=== PATIENT | female | born 1985 | race American Indian/Alaskan Native ===

== ENCOUNTER 2020-07-18 07:30 | Inpatient (IN) | payer OTHER, SELFPAY ==
--- NOTE | 2020-07-18 07:51 | Emergency Department Report ---
ED Abdominal Pain HPI - General Chief Complaint: Abdominal Pain Stated Complaint: SEVERE ABD PAIN Time Seen by Provider: 07/18/20 07:49 Source: patient Mode of arrival: Ambulatory Limitations: No Limitations - History of Present Illness Initial Comments: This pleasant 34-year-old female presents the emergency department chief complaint of right upper quadrant abdominal pain with associated nausea and vomiting over the past 3 days. She denies any bloody or bilious vomiting. She reports anytime she eats she vomits. She denies any radiating pain. Abdomen is located in the right upper quadrant denies any alleviating factors. She denies any known past medical history, current medication use, known allergies to medications or previous surgeries. She denies any associated fever, chills, night sweats, headache, dizziness, blurry vision, chest pain, shortness of breath, weakness or any other associated symptoms. - Related Data Allergies Allergy/AdvReac Type Severity Reaction Status Date / Time No Known Allergies Allergy Unverified 07/18/20 07:36 ED Review of Systems ROS: Stated complaint: SEVERE ABD PAIN Other details as noted in HPI Comment: All other systems reviewed and negative Constitutional: denies: chills, fever Eyes: denies: eye pain, eye discharge, vision change ENT: denies: ear pain, throat pain Respiratory: denies: cough, shortness of breath, wheezing Cardiovascular: denies: chest pain, palpitations Endocrine: no symptoms reported Gastrointestinal: as per HPI, abdominal pain, nausea, vomiting. denies: diarrhea Genitourinary: denies: urgency, dysuria, discharge Musculoskeletal: denies: back pain, joint swelling, arthralgia Skin: denies: rash, lesions Neurological: denies: headache, weakness, paresthesias Psychiatric: denies: anxiety, depression Hematological/Lymphatic: denies: easy bleeding, easy bruising ED Past Medical Hx - Past Medical History Previous Medical History?: No - Surgical History Past Surgical History?: No - Social History Smoking Status: Never Smoker ED Physical Exam - General Limitations: No Limitations General appearance: alert, in no apparent distress - Head Head exam: Present: atraumatic, normocephalic - Eye Eye exam: Present: normal appearance, PERRL, EOMI Pupils: Present: normal accommodation - ENT ENT exam: Present: normal exam, mucous membranes moist - Neck Neck exam: Present: normal inspection, full ROM. Absent: tenderness, meningismus - Respiratory Respiratory exam: Present: normal lung sounds bilaterally. Absent: respiratory distress, wheezes, rales, rhonchi, stridor - Cardiovascular Cardiovascular Exam: Present: regular rate, normal rhythm, normal heart sounds. Absent: systolic murmur, diastolic murmur, rubs, gallop - GI/Abdominal GI/Abdominal exam: Present: soft, tenderness (TTP to RUQ, negative jaramillo sign ,no rebound or guarding, negative mcburneys point tenderness, no CVA tenderness bilaterally ), normal bowel sounds. Absent: distended - Extremities Exam Extremities exam: Present: normal inspection, full ROM, normal capillary refill. Absent: tenderness, calf tenderness - Back Exam Back exam: Present: normal inspection, full ROM. Absent: tenderness, CVA tenderness (R), CVA tenderness (L) - Neurological Exam Neurological exam: Present: alert, oriented X3, normal gait - Psychiatric Psychiatric exam: Present: normal affect, normal mood - Skin Skin exam: Present: warm, dry, intact, normal color. Absent: rash ED Course Vital Signs 07/18/20 07:36 Temperature 98.6 F Pulse Rate 83 Respiratory 16 Rate Blood Pressure 154/109 O2 Sat by Pulse 100 Oximetry - Reevaluation(s) Reevaluation #1: 07/18/20 09:39 Patient reports feeling better after IV fluids and antiemetics. Her labs re turned with and a slight increase in her LFTs and her lipase is elevated consistent with acute pancreatitis. Ultrasound of the right upper quadrant shows gallstones and a possible dilated common bile duct. GI was paged for consultation. I discussed these results with the patient that she likely has choledocholithiasis and may require MR CP or ERCP. Patient stated that she could not be admitted to the hospital today due to her 1-year-old not having any childcare. She stated that possibly her sister could watch the child and I pleaded with her to call her sister to try and get her to watch the child so we could address this issue. She understood the seriousness of pancreatitis and the risk of leaving without treatment that could include or permanent disability. 07/18/20 09:39 12 09:57 patient was able to find child welfare worker and will be admitted. Discussed with attending physician who agreed with plan. - Consultations Consultation #1: 07/18/[address] Piper (GI). He requested we order MRCP and admit to [facility]. He will come see patient. Consultation #2: 07/18/20 09:56 Spoke with [facility] physician at [phone] I place order for MRCP and admit to Dr. Salmeron ([facility]) ED Medical Decision Making - Lab Data Result diagrams: 07/18/20 07:58 07/18/20 07:58 Lab Results 07/18/20 07/18/20 07/18/20 Range/Units 07:58 07:58 Unknown WBC 8.4 (4.5-11.0) K/mm3 RBC 4.94 (3.65-5.03) M/mm3 Hgb 13.1 (10.1-14.3) gm/dl Hct 40.3 (30.3-42.9) % MCV 82 (79-97) fl MCH 27 L (28-32) pg MCHC 33 (30-34) % RDW 12.9 L (13.2-15.2) % Plt Count 265 (140-440) K/mm3 Lymph % (Auto) 11.6 L (13.4-35.0) % [place] % (Auto) 7.5 H (0.0-7.3) % Eos % (Auto) 0.1 (0.0-4.3) % Baso % (Auto) 0.1 (0.0-1.8) % Lymph # (Auto) 1.0 L (1.2-5.4) K/mm3 [place] # (Auto) 0.6 (0.0-0.8) K/mm3 Eos # (Auto) 0.0 (0.0-0.4) K/mm3 Baso # (Auto) 0.0 (0.0-0.1) K/mm3 Seg Neutrophils % 80.7 H (40.0-70.0) % Seg Neutrophils # 6.8 (1.8-7.7) K/mm3 Sodium 139 (137-145) mmol/L Potassium 3.6 (3.6-5.0) mmol/L Chloride 101.8 (98-107) mmol/L Carbon Dioxide 30 (22-30) mmol/L Anion Gap 11 mmol/L BUN 9 (7-17) mg/dL Creatinine 0.8 (0.6-1.2) mg/dL Estimated GFR > 60 ml/min BUN/Creatinine Ratio 11 % Glucose 111 H (65-100) mg/dL Calcium 9.5 (8.4-10.2) mg/dL Total Bilirubin 0.70 (0.1-1.2) mg/dL AST 79 H (5-40) units/L ALT 117 H (7-56) units/L Alkaline Phosphatase 79 (35-129) units/L Total Protein 8.8 H (6.3-8.2) g/dL Albumin 4.6 (3.9-5) g/dL Albumin/Globulin Ratio 1.1 % Lipase 1286 H (13-60) units/L Urine Color Sana (Yellow) Urine Turbidity Slightly-cloudy (Clear) Urine pH 5.0 (5.0-7.0) Ur Specific [place] 1.028 (1.003-1.030) Urine Protein 100 mg/dl (Negative) mg/dL Urine Glucose (UA) Neg (Negative) mg/dL Urine Ketones Neg (Negative) mg/dL Urine Blood Neg (Negative) Urine Nitrite Neg (Negative) Urine Bilirubin Neg (Negative) Urine Urobilinogen 2.0 (<2.0) mg/dL Ur Leukocyte Esterase Lg (Negative) Urine WBC (Auto) 41.0 H (0.0-6.0) /HPF Urine RBC (Auto) 5.0 (0.0-6.0) /HPF U Epithel Cells (Auto) 15.0 H (0-13.0) /HPF Urine Bacteria (Auto) 1+ (Negative) /HPF Urine Mucus 3+ /HPF Urine HCG, Qual Negative (Negative) - Radiology Data Radiology results: report reviewed, image reviewed [facility] [address] [place] [address] Ultrasound Report Signed Patient: ONUR LOUIS MR#: [id number] : 1985 Acct:[id number] Age/Sex: 34 / F ADM Date: 07/18/20 Loc: ED Attending Dr: Ordering Physician: JIMENEZ GUERRERO Date of Service: 07/18/20 Procedure(s): US abdomen limited Accession Number(s): [id number] cc: JIMENEZ GUERRERO ULTRASOUND ABDOMEN, LIMITED (RIGHT UPPER QUADRANT) INDICATION: RUQ pain, N/V. COMPARISON: None available. FINDINGS: Pancreas: Visualized portion shows no significant abnormality. Liver: Normal. Gallbladder: There is cholelithiasis. The gallbladder wall is slightly thickened measuring 4 mm. This is not specific in the setting gallstones. Bile ducts: Normal. Common Bile Duct measures 7 mm. Free fluid: None. Additional Findings: None. IMPRESSION: 1. There is cholelithiasis. There is slight dilatation of the common bile duct. 2. There is slight thickening of the gallbladder wall. This is nonspecific in the setting of gallstones. If cholecystitis is a clinical concern, nuclear medicine HIDA scan can be obtained to further evaluate. Signer Name: Benjamin Sheldon MD Signed: 07/18/2020 8:24 AM Workstation Name: [id number] Transcribed By: OSMIN Dictated By: Benjamin Sheldon MD Electronically Authenticated By: Benjamin Sheldon MD Signed Date/Time: 07/18/20 0824 - Medical Decision Making Patient is hemodynamically stable and in no acute distress. Vital signs are stable other than she was mildly initially hypertensive. Her white count was normal, no Jaramillo sign and no convincing evidence of acute cholecystitis on ultrasound making acute cholecystitis less likely. Her ultrasound was consistent with a common bile duct dilation. Her lipase was elevated and her LFTs were elevated concerning for choledocholithiasis. I spoke with GI who recommended an MRCP which was ordered. I spoke with internal medicine physician who agreed to admit the patient. Patient was able to find childcare and will stay for admission and GI evaluation. She was agreeable to plan and all of her questions were answered. - Differential Diagnosis choledocolithiasis, cholecystitis, pancreatitis, PUD Critical care attestation.: If time is entered above; I have spent that time in minutes in the direct care of this critically ill patient, excluding procedure time. ED Disposition Clinical Impression: Choledocholithiasis Acute pancreatitis Qualifiers: Pancreatitis type: biliary Acute pancreatitis complication: unspecified Qualified Code(s): K85.10 - Biliary acute pancreatitis without necrosis or infection Disposition: OP ADMIT IP TO THIS HOSP Is pt being admited?: Yes Does the pt Need Aspirin: No Condition: Stable Instructions: Abdominal Pain (ED) Time of Disposition: 10:00
[2020-07-18] MEDS ORDERED: ONDANSETRON 4 MG/2 ML INJ IV ONE (07:52)
[2020-07-18] MEDS ORDERED: SODIUM CHLORIDE 0.9% 1000 ML 1,000 ML IV ONE (07:52)
[2020-07-18 08:03] LABS: Bacteria,Urine 1+ /HPF (Negative); Bilirubin,Urine NEG (Negative); Blood,Urine NEG (Negative); Color,Urine Amber (Yellow); Mucus,Urine 3+ /HPF
[2020-07-18 08:04] LABS: HCG Qualitative,Urine Negative (Negative)
--- NOTE | 2020-07-18 08:29 | Ultrasound Report ---
ULTRASOUND ABDOMEN, LIMITED (RIGHT UPPER QUADRANT) INDICATION: RUQ pain, N/V. COMPARISON: None available. FINDINGS: Pancreas: Visualized portion shows no significant abnormality. Liver: Normal. Gallbladder: There is cholelithiasis. The gallbladder wall is slightly thickened measuring 4 mm. This is not specific in the setting gallstones. Bile ducts: Normal. Common Bile Duct measures 7 mm. Free fluid: None. Additional Findings: None. IMPRESSION: 1. There is cholelithiasis. There is slight dilatation of the common bile duct. 2. There is slight thickening of the gallbladder wall. This is nonspecific in the setting of gallston es. If cholecystitis is a clinical concern, nuclear medicine HIDA scan can be obtained to further neal luate. Signer Name: Benjamin Sheldon MD Signed: 07/18/2020 8:24 AM Workstation Name: [id number]
[2020-07-18 08:30] LABS: Basophils % (Auto) 0.1 % (0.0-1.8); Eosinophils % (Auto) 0.1 % (0.0-4.3); Hematocrit 40.3 % (30.3-42.9); Hemoglobin 13.1 gm/dl (10.1-14.3); Lymphocytes % (Auto) 11.6 % (13.4-35.0); Mean Corpuscular HGB Conc 33 % (30-34); Mean Corpuscular Volume 82 fl (79-97); Monocytes # (Auto) 0.6 K/mm3 (0.0-0.8); Monocytes % (Auto) 7.5 % (0.0-7.3); Platelet Count 265 K/mm3 (140-440); Red Blood Count 4.94 M/mm3 (3.65-5.03); Red Cell Distribution Width 12.9 % (13.2-15.2)
[2020-07-18 09:16] LABS: Alanine Aminotransferase 117 units/L (7-56); Albumin 4.6 g/dL (3.9-5); BUN/Creatinine Ratio 11; Blood Urea Nitrogen 9 mg/dL (7-17); Calcium 9.5 mg/dL (8.4-10.2); Hemolysis Index 9
--- NOTE | 2020-07-18 11:06 | History and Physical Report ---
History of Present Illness Date of examination: 07/18/20 Chief complaint: abd pain History of present illness: This is a 34-year-old female with preeclampsia during who presents to the emergency department on 07/18 with complaints of bilateral lower abdomen and right upper quadrant pain associated with nausea and vomiting for 3 days. She rates her pain at 7-8/10 and is described as sharp and intermittent without radiation. Patient states the pain gets worse with eating and slightly alleviated with vomiting. She states the pain has been ongoing intermittently for 6 months however has worsened over the past 3 days. She denies any hematochezia, melena, hemoptysis or coffee-ground emesis. She denies fevers, chills, hemoptysis, fatigue, recent weight loss, diarrhea, recent sick contacts or known exposure to COVID-19. Work-up in the emergency department included an abdominal ultrasound which revealed cholelithiasis with slight dilation of the common bile duct, slight thickening of the gallbladder wall, lab work which revealed transaminitis (AST 79, ALT 117) and elevated lipase at 1236. Her urine analysis is positive for leukocyte esterase with pyuria. GI was consulted in the emergency department who ordered a MRCP. She was admitted to the hospital service for further evaluation and treatment of her urinary tract infection. Advance care planning conducted in the emergency department, prior visits reviewed and no home medications to reconcile. Past History Past Medical History: No medical history, other (preeclampsia while ) Past Surgical History: No surgical history Social history: , lives with family, full code. denies: smoking, alcohol abuse, prescription drug abuse, IV drug use Family history: no significant family history Medications and Allergies Allergies Allergy/AdvReac Type Severity Reaction Status Date / Time No Known Allergies Allergy Unverified 07/18/20 07:36 Active Meds: Active Medications Acetaminophen (Tylenol) 650 mg PO Q4H PRN PRN Reason: Pain MILD(1-3)/Fever >100.5/DUBON Morphine Sulfate (Morphine) 2 mg IV Q4H PRN PRN Reason: Pain, Moderate (4-6) Ondansetron HCl (Zofran) 4 mg IV Q8H PRN PRN Reason: Nausea And Vomiting Sodium Chloride (Sodium Chloride Flush Syringe 10 Ml) 10 ml IV BID DONELL Sodium Chloride (Sodium Chloride Flush Syringe 10 Ml) 10 ml IV PRN PRN PRN Reason: LINE FLUSH Review of Systems Constitutional: weakness, no weight loss, no weight gain, no fever, no chills, no sweats, no night sweats, no anorexia, no fatigue, no malaise, no lethargy, no chronic headaches, no poor appetite Ears, nose, mouth and throat: no ear pain, no ear discharge, no tinnitis, no decreased hearing, no nose pain, no nasal congestion, no nasal discharge, no sinus pressure, no sinus pain, no epistaxis, no bleeding gums, no dental pain, no dysphagia, no sore throat, no voice changes, no post-nasal drip, no headache Cardiovascular: no chest pain, no orthopnea, no palpitations, no rapid/irregular heart beat, no edema, no syncope, no lightheadedness, no shortness of breath, no dyspnea on exertion, no paroxysmal nocturnal dyspnea, no claudication, no phlebitis, no high blood pressure, no leg edema, no decreased exercise tolerance Respiratory: no cough, no cough with sputum, no excessive sputum, no hemoptysis, no shortness of breath, no dyspnea on exertion, no pleurisy, no pain on inspiration Gastrointestinal: loss of appetite, no abdominal pain, no nausea, no vomiting, no diarrhea, no constipation, no change in bowel habits, no hematemesis, no coffee ground emesis, no BRBPR, no melena, no hematochezia Genitourinary Female: no dyspareunia, no dysmenorrhea, no pelvic pain, no flank pain, no menorrhagia, no dysuria, no urinary frequency, no urgency, no stress incontinence Musculoskeletal: no neck pain, no shooting arm pain, no arm numbness/tingling, no low back pain, no shooting leg pain, no leg numbness/tingling Integumentary: no rash, no pruritis, no redness, no sores, no wounds, no jaundice, no boils Neurological: no transient paralysis, no paralysis, no weakness, no parathesias, no numbness, no tingling, no seizures, no syncope, no tremors, no ataxia Psychiatric: no anxiety, no memory loss, no change in sleep habits, no sleep disturbances, no insomnia, no hypersomnia, no change in appetite, no suicidal ideation, no depression, no confusion Endocrine: no cold intolerance, no heat intolerance, no polyphagia, no excessive thirst, no polydipsia, no polyuria, no nocturia, no weight change, no palpatat ions Hematologic/Lymphatic: no easy bruising, no easy bleeding Allergic/Immunologic: no urticaria, no allergic rhinitis, no wheezing Exam - Constitutional Vitals: Temp Pulse Resp BP Pulse Ox 98.6 F 83 16 154/109 100 07/18/20 07:36 07/18/20 07:36 07/18/20 07:36 07/18/20 07:36 07/18/20 07:36 General appearance: Present: no acute distress - EENT Eyes: Present: PERRL, EOM intact ENT: hearing intact, clear oral mucosa, dentition normal - Neck Neck: Present: supple - Respiratory Respiratory effort: normal Respiratory: bilateral: CTA - Cardiovascular Rhythm: regular Heart Sounds: Present: S1 & S2. Absent: systolic murmur, diastolic murmur - Extremities Extremities: no ischemia, pulses intact, pulses symmetrical, No edema, normal temperature, normal color, Full ROM Peripheral Pulses: within normal limits - Abdominal General gastrointestinal: Present: soft, non-tender, non-distended, normal bowel sounds - Integumentary Integumentary: Present: clear, warm, dry - Musculoskeletal Musculoskeletal: strength equal bilaterally - Psychiatric Psychiatric: appropriate mood/affect, memory intact, cooperative - Neurologic Neurologic: CNII-XII intact, no focal deficits, moves all extremities - Allied Health Allied health notes reviewed: nursing Results - Labs CBC & Chem 7: 07/18/20 07:58 07/18/20 07:58 Labs: Laboratory Last Values WBC 8.4 K/mm3 (4.5-11.0) 07/18/20 07:58 RBC 4.94 M/mm3 (3.65-5.03) 07/18/20 07:58 Hgb 13.1 gm/dl (10.1-14.3) 07/18/20 07:58 Hct 40.3 % (30.3-42.9) 07/18/20 07:58 MCV 82 fl (79-97) 07/18/20 07:58 MCH 27 pg (28-32) L 07/18/20 07:58 MCHC 33 % (30-34) 07/18/20 07:58 RDW 12.9 % (13.2-15.2) L 07/18/20 07:58 Plt Count 265 K/mm3 (140-440) 07/18/20 07:58 Lymph % (Auto) 11.6 % (13.4-35.0) L 07/18/20 07:58 [place] % (Auto) 7.5 % (0.0-7.3) H 07/18/20 07:58 Eos % (Auto) 0.1 % (0.0-4.3) 07/18/20 07:58 Baso % (Auto) 0.1 % (0.0-1.8) 07/18/20 07:58 Lymph # (Auto) 1.0 K/mm3 (1.2-5.4) L 07/18/20 07:58 [place] # (Auto) 0.6 K/mm3 (0.0-0.8) 07/18/20 07:58 Eos # (Auto) 0.0 K/mm3 (0.0-0.4) 07/18/20 07:58 Baso # (Auto) 0.0 K/mm3 (0.0-0.1) 07/18/20 07:58 Seg Neutrophils % 80.7 % (40.0-70.0) H 07/18/20 07:58 Seg Neutrophils # 6.8 K/mm3 (1.8-7.7) 07/18/20 07:58 Sodium 139 mmol/L (137-145) 07/18/20 07:58 Potassium 3.6 mmol/L (3.6-5.0) 07/18/20 07:58 Chloride 101.8 mmol/L (98-107) 07/18/20 07:58 Carbon Dioxide 30 mmol/L (22-30) 07/18/20 07:58 Anion Gap 11 mmol/L 07/18/20 07:58 BUN 9 mg/dL (7-17) 07/18/20 07:58 Creatinine 0.8 mg/dL (0.6-1.2) 07/18/20 07:58 Estimated GFR > 60 ml/min 07/18/20 07:58 BUN/Creatinine Ratio 11 % 07/18/20 07:58 Glucose 111 mg/dL (65-100) H 07/18/20 07:58 Calcium 9.5 mg/dL (8.4-10.2) 07/18/20 07:58 Total Bilirubin 0.70 mg/dL (0.1-1.2) 07/18/20 07:58 AST 79 units/L (5-40) H 07/18/20 07:58 ALT 117 units/L (7-56) H 07/18/20 07:58 Alkaline Phosphatase 79 units/L (35-129) 07/18/20 07:58 Total Protein 8.8 g/dL (6.3-8.2) H 07/18/20 07:58 Albumin 4.6 g/dL (3.9-5) 07/18/20 07:58 Albumin/Globulin Ratio 1.1 % 07/18/20 07:58 Lipase 1286 units/L (13-60) H 07/18/20 07:58 Urine Color Sana (Yellow) 07/18/20 Unknown Urine Turbidity Slightly-cloudy (Clear) 07/18/20 Unknown Urine pH 5.0 (5.0-7.0) 07/18/20 Unknown Ur Specific [place] 1.028 (1.003-1.030) 07/18/20 Unknown Urine Protein 100 mg/dl mg/dL (Negative) 07/18/20 Unknown Urine Glucose (UA) Neg mg/dL (Negative) 07/18/20 Unknown Urine Ketones Neg mg/dL (Negative) 07/18/20 Unknown Urine Blood Neg (Negative) 07/18/20 Unknown Urine Nitrite Neg (Negative) 07/18/20 Unknown Urine Bilirubin Neg (Negative) 07/18/20 Unknown Urine Urobilinogen 2.0 mg/dL (<2.0) 07/18/20 Unknown Ur Leukocyte Esterase Lg (Negative) 07/18/20 Unknown Urine WBC (Auto) 41.0 /HPF (0.0-6.0) H 07/18/20 Unknown Urine RBC (Auto) 5.0 /HPF (0.0-6.0) 07/18/20 Unknown U Epithel Cells (Auto) 15.0 /HPF (0-13.0) H 07/18/20 Unknown Urine Bacteria (Auto) 1+ /HPF (Negative) 07/18/20 Unknown Urine Mucus 3+ /HPF 07/18/20 Unknown Urine HCG, Qual Negative (Negative) 07/18/20 Unknown - Diagnostic Impressions Diagnostic Impressions: 07/18 abdominal ultrasound shows cholelithiasis, slightly dilated common bile duct, slightly thickened gallbladder wall. 07/18 MRCP shows cholelithiasis with mild gallbladder wall thickening and Choledocholithiasis with a couple tiny stones measuring up to 3 mm in the extrahepatic biliary ductal system. Assessment and Plan - Patient Problems (1) Choledocholithiasis Current Visit: Yes Status: Acute Plan to address problem: 07/18 abdominal ultrasound shows cholelithiasis, slightly dilated common bile duct, slightly thickened gallbladder wall. 07/18 MRCP shows cholelithiasis with mild gallbladder wall thickening and Choledocholithiasis with a couple tiny stones measuring up to 3 mm in the extrahepatic biliary ductal system. GI consulted in the emergency department Supportive care (2) Acute pancreatitis Current Visit: Yes Status: Acute Qualifiers: Pancreatitis type: biliary Acute pancreatitis complication: unspecified Qualified Code(s): K85.10 - Biliary acute pancreatitis without necrosis or infection Plan to address problem: MIVF 07/18 lipase 1286, transaminitis (AST 79, ALT 117) Trend lipase, amalyse Supportive care As needed analgesics (3) Urinary tract infection Current Visit: Yes Status: Acute Plan to address problem: 07/18 urine analysis is positive for leukocyte esterase with pyuria. 07/18 urine culture pending IV antibiotics Supportive care (4) DVT prophylaxis Current Visit: Yes Status: Acute Plan to address problem: SCDs to bilateral extremities while in bed Patient is ambulatory We will hold chemical anticoagulation prophylaxis prophylaxis pending GI input (5) Full code status Current Visit: Yes Status: Acute
[2020-07-18] MEDS ORDERED: MORPHINE 2 MG/1 ML INJ IV PRN (11:30)
[2020-07-18] MEDS ORDERED: ACETAMINOPHEN 325 MG TAB PO PRN (11:30)
[2020-07-18] MEDS ORDERED: ONDANSETRON 4 MG/2 ML INJ IV PRN (11:30)
--- NOTE | 2020-07-18 13:14 | Magnetic Resonance Report ---
MRI abdomen without contrast--MRCP INDICATION: choledocolithiasis. COMPARISON: Right upper quadrant ultrasound from today FINDINGS: Lung bases are clear. No acute osseous abnormality identified. ABDOMEN: There is cholelithiasis with several tiny gallstones and also mild gallbladder wall edema. T here is also choledocholithiasis with at least a couple tiny stones measuring up to 3 mm within the e xtrahepatic biliary system (for example see image #25 of series #4). No significant intrahepatic or e xtrahepatic biliary ductal dilatation. The liver, pancreas, adrenals, kidneys, and visualized GI tract appear unremarkable. IMPRESSION: 1. Cholelithiasis with mild gallbladder wall thickening as may be seen with cholecystitis--correlate with exam findings. 2. Choledocholithiasis with a couple tiny stones measuring up to 3 mm in the extrahepatic biliary maico eloisa system. Signer Name: Bear Ty MD Signed: 07/18/2020 1:10 PM Workstation Name: [id number]
[2020-07-18] MEDS ORDERED: LACTATED RINGERS 1,000 ML IV SCH (14:30)
[2020-07-18] MEDS ORDERED: cefTRIAXone/NS 1 GM/50 ML 1 GM/50 ML BAG IV ONE (14:51)
[2020-07-18] MEDS: cefTRIAXone/NS 1 GM/50 ML 1 GM/50 ML BAG IV SCH ×3 (14:54→23:43)
--- NOTE | 2020-07-18 14:54 | Event Note ---
Date: 07/18/20 Full GI consult dictated - gallstones pancreatitis w/ choledocholithiasis - conservative pancreatitis management - ERCP in am
[2020-07-18] MEDS ORDERED: SODIUM CHLORIDE 0.9% 100 ML IVPB IV SCH (15:00)
[2020-07-18] MEDS ORDERED: SODIUM CHLORIDE 0.9% 1000 ML 1,000 ML ONE (19:06)
--- NOTE | 2020-07-18 21:28 | Consultation ---
REFERRING PHYSICIAN: Shawna Layne MD. INDICATION: 1. Abdominal pain. 2. Nausea. HISTORY OF PRESENT ILLNESS: The patient is a 34-year-old female with recent preeclampsia while , complains of upper abdominal pain. The patient reports 3 days of upper abdominal pain with nausea with eating. She reports no history of reflux. The patient reports she had this pain intermittently over recent months, but usually resolves on its own. She reports no lower GI symptoms including diarrhea, constipation or rectal bleeding. The patient subsequently was brought to the Emergency Room with concerns for gallbladder disease and choledocholithiasis raising, she was admitted and GI consulted. The patient also noted to have increased liver function tests. No other specific complaints. PAST MEDICAL HISTORY: Preeclampsia. MEDICATIONS: Reviewed and updated in chart. ALLERGIES: No known drug allergies. SOCIAL HISTORY: Denies alcohol, tobacco or drug abuse. FAMILY HISTORY: Negative for colon cancer, IBD, or liver disease. REVIEW OF SYSTEMS: GENERAL: Reports some weakness. HEENT: No visual complaints or tinnitus. PULMONARY: No shortness of breath. No cough. No chest pain. GASTROINTESTINAL: Reports abdominal pain and nausea. All points of 13-point review of systems otherwise negative. PHYSICAL EXAMINATION: VITAL SIGNS: Temperature of 98.6, pulse 83, respirations 20, blood pressure 154/90. GENERAL: Fairly nourished female, in no acute distress. HEENT: Pupils equal, round and reactive. PULMONARY: Clear to auscultation bilaterally. CARDIOVASCULAR: Regular rhythm. Normal S1, S2. ABDOMEN: Positive bowel sounds, soft. SKIN: No obvious rashes. LABORATORY DATA: Pertinent for white count of 8.4, hemoglobin and hematocrit of 13.1 and 40.3, platelet count of 265. Chem-7 within normal limits. AST and ALT of 70 and 117, total bilirubin of 0.7, with an alkaline phosphatase of 79. Lipase of 1286. Abdominal ultrasound on 07/18/2020 showed cholelithiasis with slight thickening of the gallbladder wall, a slight dilation of the common bile duct. MRCP showed signs of choledocholithiasis. ASSESSMENT AND PLAN: A 34-year-old black female presents with 2-3 days of abdominal pain with noted increased liver function test and lipase with ultrasound showing stones and MRCP showing choledocholithiasis. The patient most likely has gallstone pancreatitis with choledocholithiasis. PLAN: 1. We will review ultrasound and MRCP. 2. N.p.o. for now. 3. Antiemetics and pain medications per primary team. 4. We will plan for ERCP in a.m. 5. Await for further surgery input as to the laparoscopic cholecystectomy. JOB# [id number] [facility]
[2020-07-19 06:53] LABS: Basophils % (Auto) 0.2 % (0.0-1.8); Eosinophils % (Auto) 0.7 % (0.0-4.3); Hematocrit 36.8 % (30.3-42.9); Lymphocytes # (Auto) 1.8 K/mm3 (1.2-5.4); Mean Corpuscular HGB Conc 33 % (30-34); Mean Corpuscular Volume 82 fl (79-97); Monocytes # (Auto) 0.5 K/mm3 (0.0-0.8); Platelet Count 238 K/mm3 (140-440); Red Blood Count 4.47 M/mm3 (3.65-5.03); Red Cell Distribution Width 12.9 % (13.2-15.2)
[2020-07-19 07:13] LABS: Alanine Aminotransferase 77 units/L (7-56); Albumin 3.9 g/dL (3.9-5); BUN/Creatinine Ratio 10; Blood Urea Nitrogen 9 mg/dL (7-17); Calcium 8.7 mg/dL (8.4-10.2); Hemolysis Index 0
[2020-07-19] MEDS ORDERED: SODIUM CHLORIDE 0.9% 1000 ML 1,000 ML IV SCH (09:15)
[2020-07-19] MEDS: cefTRIAXone/NS 2 GM/100 ML 2 GM/100 ML BAG IV SCH (09:28)
[2020-07-19] MEDS: PANTOPRAZOLE 40 MG INJ IV SCH ×2 (09:30→16:05)
--- NOTE | 2020-07-19 11:27 | Anesthesia Consultation ---
Anesthesia Consult and Med Hx Date of service: 07/19/20 - Airway Anesthetic Teeth Evaluation: Good ROM Head & Neck: Adequate Mental/Hyoid Distance: Adequate Mallampati Class: Class II Intubation Access Assessment: Good - Pulmonary Exam CTA: Yes - Cardiac Exam Cardiac Exam: RRR - Pre-Operative Health Status ASA Pre-Surgery Classification: ASA1 Proposed Anesthetic Plan: MAC - Pulmonary Hx Smoking: No Hx Asthma: No COPD: No Hx Pneumonia: No - Endocrine Hx End Stage Renal Disease: No
--- NOTE | 2020-07-19 11:28 | Anesthesia Day of Surgery ---
Anesthesia Day of Surgery - Day of Surgery Patient Examined: Yes Patient H&P Reviewed: Yes Patient is NPO: Yes
[2020-07-19] MEDS ORDERED: ONDANSETRON 4 MG/2 ML INJ ONE (11:30)
[2020-07-19] MEDS ORDERED: MIDAZOLAM 2 MG/2 ML INJ ONE (11:42)
[2020-07-19] MEDS ORDERED: fentaNYL 100 MCG/2 ML INJ ONE (11:42)
[2020-07-19] MEDS ORDERED: propofoL 200 MG/20 ML VIAL IV ONE (11:45)
[2020-07-19] MEDS ORDERED: KETAMINE/STERILE WATER 50 MG/ML SYRINGE ONE (11:45)
[2020-07-19] MEDS ORDERED: SODIUM CHLORIDE 0.9% 100 ML ONE (11:47)
--- NOTE | 2020-07-19 13:01 | Post Anesthesia Evaluation ---
- Post Anesthesia Evaluation Patient Participated: Yes Airway Patent: Yes Stable Respiratory Function: Yes Nausea/Vomiting: No Temp > 96.8F: Yes Pain Manageable: Yes Adequeate Hydration: Yes Anesthesia Complications: No
--- NOTE | 2020-07-19 13:28 | Post Operative Note ---
Pre-op diagnosis: biliary stone Findings: ERCP: nl ampullae - nl pancreatogram - cholangiogram w. small defects - sphinterotomy - balloon w/ small stone/sludge removed - negative other Procedure: ERCP Anesthesia: MAC Surgeon: ANDREY MCCANN Estimated blood loss: none Pathology: list Specimen disposition: to lab Condition: stable Disposition: floor
--- NOTE | 2020-07-19 13:53 | Progress Note ---
Assessment and Plan - Patient Problems (1) Cholecystitis with cholelithiasis Current Visit: Yes Status: Acute Plan to address problem: 07/18 abdominal ultrasound shows cholelithiasis, slightly dilated common bile duct, slightly thickened gallbladder wall. 07/18 MRCP shows cholelithiasis with mild gallbladder wall thickening and Choledocholithiasis with a couple tiny stones measuring up to 3 mm in the extrahepatic biliary ductal system. 07/19 ERCP shows cholangiogram with small deficits, normal limits pancreatogram, small stone and sludge removed with ballon, sphinterotomy GI consulted in the emergency department, appreciate recommendations Supportive care Per GI consider surgery consult for lap brittany inpatient versus outpatient, okay to DC from GI standpoint if stable in the morning Surgery consulted, appreciate recommendations (2) Acute pancreatitis Current Visit: Yes Status: Acute Qualifiers: Pancreatitis type: biliary Acute pancreatitis complication: unspecified Qualified Code(s): K85.10 - Biliary acute pancreatitis without necrosis or infection Plan to address problem: MIVF 07/18 lipase 1286, transaminitis (AST 79, ALT 117) Trend lipase, amalyse Supportive care As needed analgesics 07/19 LFT: AST 38, ALT 77, alkaline phos 61 07/19 lipase 97 (3) Urinary tract infection Current Visit: Yes Status: Acute Plan to address problem: 07/18 urine analysis is positive for leukocyte esterase with pyuria. 07/18 urine culture pending IV antibiotics Supportive care (4) DVT prophylaxis Current Visit: Yes Status: Acute Plan to address problem: SCDs to bilateral extremities while in bed Patient is ambulatory We will hold chemical anticoagulation prophylaxis prophylaxis pending GI input History Interval history: This is a 34-year-old female with preeclampsia during who presents to the emergency department on 07/18 with complaints of bilateral lower abdomen and right upper quadrant pain associated with nausea and vomiting for 3 days rated at 7-8/10 and is described as sharp and intermittent without radiation whioch worsens with eating and slightly alleviated with vomiting. She states the pain has been ongoing intermittently for 6 months however has worsened over the past 3 days. Work-up in the ED included an abdominal ultrasound which revealed cholelithiasis with slight dilation of the common bile duct, slight thickening of the gallbladder wall, lab work which revealed transaminitis (AST 79, ALT 117) and elevated lipase at 1236. Her urine analysis is positive for leukocyte esterase with pyuria. GI was consulted in the emergency department who ordered a MRCP. Today she underwent an ERCP with GI and they recommended surgery to be consulted for inpatient versus outpatient lap cholecystectomy. Patient is stable for discharge from GI standpoint in the a.m. if no surgical intervention is elected by surgery. Consult has been placed to surgery. No acute events reported overnight. Patient states that she is hungry. Hospitalist Physical - Constitutional Vitals: Temp Pulse Resp BP Pulse Ox 97.6 F 81 18 122/80 98 07/19/20 12:26 07/19/20 12:56 07/19/20 12:56 07/19/20 12:56 07/19/20 12:56 General appearance: Present: no acute distress - EENT Eyes: Present: PERRL, EOM intact ENT: hearing intact, clear oral mucosa, dentition normal - Neck Neck: Present: normal ROM - Respiratory Respiratory effort: normal Respiratory: bilateral: CTA - Cardiovascular Rhythm: regular Heart Sounds: Present: S1 & S2. Absent: systolic murmur, diastolic murmur - Extremities Extremities: no ischemia, pulses intact, pulses symmetrical, No edema, normal temperature, normal color, Full ROM - Abdominal General gastrointestinal: soft, tender, non-distended, normal bowel sounds - Integumentary Integumentary: Present: clear, warm, dry - Psychiatric Psychiatric: appropriate mood/affect, cooperative - Neurologic Neurologic: CNII-XII intact, no focal deficits, moves all extremities - Allied Health Allied health notes reviewed: nursing Results - Labs CBC & Chem 7: 07/19/20 04:29 07/19/20 04:29 Labs: Laboratory Last Values WBC 5.8 K/mm3 (4.5-11.0) 07/19/20 04:29 RBC 4.47 M/mm3 (3.65-5.03) 07/19/20 04:29 Hgb 12.0 gm/dl (10.1-14.3) 07/19/20 04:29 Hct 36.8 % (30.3-42.9) 07/19/20 04:29 MCV 82 fl (79-97) 07/19/20 04:29 MCH 27 pg (28-32) L 07/19/20 04:29 MCHC 33 % (30-34) 07/19/20 04:29 RDW 12.9 % (13.2-15.2) L 07/19/20 04:29 Plt Count 238 K/mm3 (140-440) 07/19/20 04:29 Lymph % (Auto) 31.0 % (13.4-35.0) 07/19/20 04:29 [place] % (Auto) 9.0 % (0.0-7.3) H 07/19/20 04:29 Eos % (Auto) 0.7 % (0.0-4.3) 07/19/20 04:29 Baso % (Auto) 0.2 % (0.0-1.8) 07/19/20 04:29 Lymph # (Auto) 1.8 K/mm3 (1.2-5.4) 07/19/20 04:29 [place] # (Auto) 0.5 K/mm3 (0.0-0.8) 07/19/20 04:29 Eos # (Auto) 0.0 K/mm3 (0.0-0.4) 07/19/20 04:29 Baso # (Auto) 0.0 K/mm3 (0.0-0.1) 07/19/20 04:29 Seg Neutrophils % 59.1 % (40.0-70.0) 07/19/20 04:29 Seg Neutrophils # 3.4 K/mm3 (1.8-7.7) 07/19/20 04:29 Sodium 140 mmol/L (137-145) 07/19/20 04:29 Potassium 3.8 mmol/L (3.6-5.0) 07/19/20 04:29 Chloride 104.3 mmol/L (98-107) 07/19/20 04:29 Carbon Dioxide 28 mmol/L (22-30) 07/19/20 04:29 Anion Gap 12 mmol/L 07/19/20 04:29 BUN 9 mg/dL (7-17) 07/19/20 04:29 Creatinine 0.9 mg/dL (0.6-1.2) 07/19/20 04:29 Estimated GFR > 60 ml/min 07/19/20 04:29 BUN/Creatinine Ratio 10 % 07/19/20 04:29 Glucose 75 mg/dL (65-100) 07/19/20 04:29 Calcium 8.7 mg/dL (8.4-10.2) 07/19/20 04:29 Total Bilirubin 0.40 mg/dL (0.1-1.2) 07/19/20 04:29 AST 34 units/L (5-40) 07/19/20 04:29 ALT 77 units/L (7-56) H 07/19/20 04:29 Alkaline Phosphatase 61 units/L (35-129) 07/19/20 04:29 Total Protein 7.3 g/dL (6.3-8.2) 07/19/20 04:29 Albumin 3.9 g/dL (3.9-5) 07/19/20 04:29 Albumin/Globulin Ratio 1.1 % 07/19/20 04:29 Amylase 111 units/L (27-131) 07/19/20 04:29 Lipase 97 units/L (13-60) H 07/19/20 04:29 Urine Color Sana (Yellow) 07/18/20 Unknown Urine Turbidity Slightly-cloudy (Clear) 07/18/20 Unknown Urine pH 5.0 (5.0-7.0) 07/18/20 Unknown Ur Specific [place] 1.028 (1.003-1.030) 07/18/20 Unknown Urine Protein 100 mg/dl mg/dL (Negative) 07/18/20 Unknown Urine Glucose (UA) Neg mg/dL (Negative) 07/18/20 Unknown Urine Ketones Neg mg/dL (Negative) 07/18/20 Unknown Urine Blood Neg (Negative) 07/18/20 Unknown Urine Nitrite Neg (Negative) 07/18/20 Unknown Urine Bilirubin Neg (Negative) 07/18/20 Unknown Urine Urobilinogen 2.0 mg/dL (<2.0) 07/18/20 Unknown Ur Leukocyte Esterase Lg (Negative) 07/18/20 Unknown Urine WBC (Auto) 41.0 /HPF (0.0-6.0) H 07/18/20 Unknown Urine RBC (Auto) 5.0 /HPF (0.0-6.0) 07/18/20 Unknown U Epithel Cells (Auto) 15.0 /HPF (0-13.0) H 07/18/20 Unknown Urine Bacteria (Auto) 1+ /HPF (Negative) 07/18/20 Unknown Urine Mucus 3+ /HPF 07/18/20 Unknown Urine HCG, Qual Negative (Negative) 07/18/20 Unknown Smith/IV: Voiding Method Toilet IV Catheter Type [Left Peripheral IV Antecubital] Active Medications - Current Medications Current Medications: Generic Name Dose Route Start Last Admin Trade Name Freq PRN Reason Stop Dose Admin Acetaminophen 650 mg 07/18/20 11:30 Tylenol PO Q4H PRN Pain MILD(1-3)/Fever >100.5/DUBON Sodium Chloride 1,000 mls @ 50 mls/hr 07/19/20 09:15 Nacl 0.9% 1000 Ml IV 07/20/20 05:14 DIRECT DONELL Sodium Chloride 1,000 mls @ 75 mls/hr 07/19/20 09:15 Nacl 0.9% 1000 Ml IV DIRECT DONELL Ceftriaxone Sodium 2 gm in 100 mls @ 200 mls/hr 07/19/20 10:00 07/19/20 09:28 Rocephin/Ns 2 Gm/100 Ml IV 200 mls/hr Q24HR DONELL Administration Morphine Sulfate 2 mg 07/18/20 11:30 Morphine IV Q4H PRN Pain, Moderate (4-6) Ondansetron HCl 4 mg 07/18/20 11:30 Zofran IV Q8H PRN Nausea And Vomiting Pantoprazole Sodium 40 mg 07/19/20 10:00 07/19/20 09:30 Protonix IV Not Given QDAY DONELL Sodium Chloride 10 ml 07/18/20 22:00 07/19/20 09:30 Sodium Chloride Flush Syringe 10 Ml IV 10 ml BID DONELL Administration Sodium Chloride 10 ml 07/18/20 11:30 Sodium Chloride Flush Syringe 10 Ml IV PRN PRN LINE FLUSH Nutrition/Malnutrition Assess - Dietary Evaluation Nutrition/Malnutrition Findings: Nutrition Notes Start: 07/19/20 11:14 Freq: Status: Active Protocol: Document 07/19/20 11:14 AT (Rec: 07/19/20 11:23 AT [id number]) Co-Sign 07/19/20 11:14 LP Nutrition Notes Need for Assessment generated from: negative cutter Initial or Follow up Brief Note Other Pertinent Diagnosis Choledocholithias, Acute pancreatitis, UTI Current Diet NPO Subjective/Other Information Consult for skin risk, but found no wounds. Chart puts Shad Score at 20. Pt currently out of the room was not able to contact by phone. RN reports that the pt is not currently experiencing N/V. Nutrition Intervention Revisit per MD consult or patient Sign Off request:
--- NOTE | 2020-07-19 13:58 | Operative Report ---
PROCEDURES: ERCP with sphincterotomy and stone removal. INDICATIONS: 1. Choledocholithiasis. 2. Increased liver function test. MEDICATIONS: Propofol per TEXTILE SUPERVISOR. COMPLICATIONS: None. DESCRIPTION OF PROCEDURE: The patient brought to procedure suite. The patient had the procedure discussed with her at length. All risks, complications, and benefits were discussed, after which the patient signed for the procedure to be performed. The patient was placed in lateral decubitus position. Mouth block placed in the patient's oral cavity. After adequate sedation medication as above, endoscope placed in the mouth and brought to level of the second portion of duodenum. No retroflexion view was performed. The patient's vital signs remained stable throughout the procedure. FINDINGS: There was a grossly normal-appearing esophagus and stomach. The ampulla appeared benign. A sphincterotome was then inserted. Pancreatogram showed a normal-appearing pancreatic duct. Cholangiogram showed very small defects with common bile duct approximately 8 mm. A medium-sized sphincterotomy was then performed. A 9-12 mm balloon was then used to remove very small stones with some sludge. Occlusion cholangiogram showed no defects. The patient tolerated the procedure well. No complications during the procedure. IMPRESSION: 1. Normal-appearing esophagus and stomach. 2. Normal ampulla. 3. Normal pancreatogram. 4. Cholangiogram with small defects and a normal size biliary tree. 5. Sphincterotomy performed. 6. Very small stones and sludge removed. 7. No stents or other interventions performed. RECOMMENDATIONS: 1. Follow labs. 2. Advance diet. 3. Consider Surgery consult for laparoscopic cholecystectomy. 4. Otherwise, okay to discharge in a.m. from GI standpoint. JOB# [id number] [facility]
--- NOTE | 2020-07-19 14:40 | Fluoroscopy Report ---
Technique: Intraoperative fluoroscopic guidance was provided. Fluoroscopy time: 320 seconds. Fluoroscopy images: 12. 25 mL of Omnipaque 350 contrast administered. Findings/Impression: Intraoperative fluoroscopic guidance for ERCP. Please see procedure report for f urther details. Signer Name: Damion Zhou MD Signed: 07/19/2020 2:36 PM Workstation Name: [id number]
[2020-07-19] MEDS: SODIUM CHLORIDE 0.9% 1000 ML 1,000 ML IV SCH (17:56)
--- NOTE | 2020-07-19 18:43 | Consultation ---
History of Present Illness Consult date: 07/19/20 Reason for consult: gallstones - History of present illness History of present illness: 34 year old female who presented to the ED with worsening abdominal pain over the last few months that was exacerbated over the weekend. The pain is made worse when she eats and localized to the RUQ. She had an US done that showed gallbaldder wall thickening and stones. She had elevated LFTs that GI was consulted for and she had an ERCP today where her CBD was sweeped of stones with sphincterotomy. She says she is still having pain when she drinks and wants to have her gallbladder out so she can resume her life as she is a single mother. Past History Past Medical History: No medical history, other (preeclampsia while ) Past Surgical History: No surgical history Social history: , lives with family, full code. denies: smoking, alcohol abuse, prescription drug abuse, IV drug use Family history: no significant family history Medications and Allergies Allergies Allergy/AdvReac Type Severity Reaction Status Date / Time No Known Allergies Allergy Unverified 07/18/20 07:36 Active Meds: Active Medications Acetaminophen (Tylenol) 650 mg PO Q4H PRN PRN Reason: Pain MILD(1-3)/Fever >100.5/DUBON Last Admin: 07/19/20 16:03 Dose: 650 mg Documented by: Sodium Chloride (Nacl 0.9% 1000 Ml) 1,000 mls @ 50 mls/hr IV DIRECT DONELL Stop: 07/20/20 05:14 Sodium Chloride (Nacl 0.9% 1000 Ml) 1,000 mls @ 75 mls/hr IV DIRECT DONELL Last Admin: 07/19/20 17:56 Dose: 75 mls/hr Documented by: Ceftriaxone Sodium (Rocephin/Ns 2 Gm/100 Ml) 2 gm in 100 mls @ 200 mls/hr IV Q24HR [facility] Last Admin: 07/19/20 09:28 Dose: 200 mls/hr Documented by: Morphine Sulfate (Morphine) 2 mg IV Q4H PRN PRN Reason: Pain, Moderate (4-6) Ondansetron HCl (Zofran) 4 mg IV Q8H PRN PRN Reason: Nausea And Vomiting Pantoprazole Sodium (Protonix) 40 mg IV QDAY [facility] Last Admin: 12/08/20 16:05 Dose: 40 mg Documented by: Sodium Chloride (Sodium Chloride Flush Syringe 10 Ml) 10 ml IV BID DONELL Last Admin: 07/19/20 09:30 Dose: 10 ml Documented by: Sodium Chloride (Sodium Chloride Flush Syringe 10 Ml) 10 ml IV PRN PRN PRN Reason: LINE FLUSH Review of Systems - Constitutional no weight loss, no fever, no chills - Cardiovascular no chest pain - Respiratory no cough - Gastrointestinal abdominal pain, nausea Exam Vital Signs Temp Pulse Resp BP Pulse Ox 98.6 F 83 16 154/109 100 07/18/20 07:36 07/18/20 07:36 07/18/20 07:36 07/18/20 07:36 07/18/20 07:36 - General physical appearance Positive: well developed, no distress, no pain - Respiratory Positive: normal expansion, normal respiratory effort - Extremities Extremities: no ischemia - Abdomen Abdomen: Present: soft, other (tender to palpation RUQ). Absent: distended, rebound, guarding - Neurologic Neurologic: alert and oriented to time, place and person Results - Labs 07/19/20 04:29 07/19/20 04:29 Abnormal lab results 07/19/20 07/19/20 Range/Units 04:29 04:29 MCH 27 L (28-32) pg RDW 12.9 L (13.2-15.2) % [place] % (Auto) 9.0 H (0.0-7.3) % ALT 77 H (7-56) units/L Lipase 97 H (13-60) units/L Diabetes panel 07/19/20 Range/Units 04:29 Sodium 140 (137-145) mmol/L Potassium 3.8 (3.6-5.0) mmol/L Chloride 104.3 (98-107) mmol/L Carbon Dioxide 28 (22-30) mmol/L BUN 9 (7-17) mg/dL Creatinine 0.9 (0.6-1.2) mg/dL Glucose 75 (65-100) mg/dL Calcium 8.7 (8.4-10.2) mg/dL AST 34 (5-40) units/L ALT 77 H (7-56) units/L Alkaline Phosphatase 61 (35-129) units/L Total Protein 7.3 (6.3-8.2) g/dL Albumin 3.9 (3.9-5) g/dL Calcium panel 07/19/20 Range/Units 04:29 Calcium 8.7 (8.4-10.2) mg/dL Albumin 3.9 (3.9-5) g/dL Pituitary panel 07/19/20 Range/Units 04:29 Sodium 140 (137-145) mmol/L Potassium 3.8 (3.6-5.0) mmol/L Chloride 104.3 (98-107) mmol/L Carbon Dioxide 28 (22-30) mmol/L BUN 9 (7-17) mg/dL Creatinine 0.9 (0.6-1.2) mg/dL Glucose 75 (65-100) mg/dL Calcium 8.7 (8.4-10.2) mg/dL Adrenal panel 07/19/20 Range/Units 04:29 Sodium 140 (137-145) mmol/L Potassium 3.8 (3.6-5.0) mmol/L Chloride 104.3 (98-107) mmol/L Carbon Dioxide 28 (22-30) mmol/L BUN 9 (7-17) mg/dL Creatinine 0.9 (0.6-1.2) mg/dL Glucose 75 (65-100) mg/dL Calcium 8.7 (8.4-10.2) mg/dL Total Bilirubin 0.40 (0.1-1.2) mg/dL AST 34 (5-40) units/L ALT 77 H (7-56) units/L Alkaline Phosphatase 61 (35-129) units/L Total Protein 7.3 (6.3-8.2) g/dL Albumin 3.9 (3.9-5) g/dL - Imaging CT scan - abdomen: report reviewed Assessment and Plan 34 year old female with Cholelithiasis/choledocholithiasis s/p ERCP with sphincterotomy and stone sweep. Afebrile and stable. Pt is scheduled for lap brittany morning at 0730. If she recovers well she can possible be discharged to home later that day.
[2020-07-20] MEDS: SODIUM CHLORIDE 0.9% 1000 ML 1,000 ML IV SCH ×2 (05:42→21:59)
[2020-07-20] MEDS: cefTRIAXone/NS 2 GM/100 ML 2 GM/100 ML BAG IV SCH (09:07)
[2020-07-20] MEDS: PANTOPRAZOLE 40 MG INJ IV SCH (09:07)
[2020-07-20 11:55] LABS: HCG Qualitative,Urine Negative (Negative)
--- NOTE | 2020-07-20 15:05 | Progress Note ---
Assessment and Plan - Patient Problems (1) Cholecystitis with cholelithiasis Current Visit: Yes Status: Acute Plan to address problem: 07/18 abdominal ultrasound shows cholelithiasis, slightly dilated common bile duct, slightly thickened gallbladder wall. Cholelithiasis/choledocholithiasis 07/18 MRCP shows cholelithiasis with mild gallbladder wall thickening and Choledocholithiasis with a couple tiny stones measuring up to 3 mm in the extrahepatic biliary ductal system. 07/19 ERCP shows cholangiogram with small deficits, normal limits pancreatogram, small stone and sludge removed with ballon, sphincterotomy GI consulted in the emergency department, appreciate recommendations Supportive care Per GI consider surgery consult for lap brittany inpatient versus outpatient, okay to DC from GI standpoint if stable in the morning Surgery consulted, appreciate recommendations Patient is scheduled for a laproscopic cholecystectomy on 07/[address] Luo, if she recovers well she can possible be discharged to home later that day. (2) Acute pancreatitis Current Visit: Yes Status: Acute Qualifiers: Pancreatitis type: biliary Acute pancreatitis complication: unspecified Qualified Code(s): K85.10 - Biliary acute pancreatitis without necrosis or infection Plan to address problem: MIVF 07/18 lipase 1286, transaminitis (AST 79, ALT 117) Trend lipase, amalyse Supportive care As needed analgesics 07/19 LFT: AST 38, ALT 77, alkaline phos 61 07/19 lipase 97 (3) Urinary tract infection Current Visit: Yes Status: Acute Plan to address problem: 07/18 urine analysis is positive for leukocyte esterase with pyuria. 07/18 urine culture pending IV antibiotics Supportive care (4) DVT prophylaxis Current Visit: Yes Status: Acute Plan to address problem: SCDs to bilateral extremities while in bed Patient is ambulatory History Interval history: This is a 34-year-old female with preeclampsia during who presents to the emergency department on 07/18 with complaints of bilateral lower abdomen and right upper quadrant pain associated with nausea and vomiting for 3 days rated at 7-8/10 and is described as sharp and intermittent without radiation whioch worsens with eating and slightly alleviated with vomiting. She states the pain has been ongoing intermittently for 6 months however has worsened over the past 3 days. Work-up in the ED included an abdominal ultrasound which revealed cholelithiasis with slight dilation of the common bile duct, slight thickening of the gallbladder wall, lab work which revealed transaminitis (AST 79, ALT 117) and elevated lipase at 1236. Her urine analysis is positive for leukocyte esterase with pyuria. GI was consulted in the emergency department who ordered a MRCP. This morning examination patient states that she still feels abdominal pain with eating there fore has been limiting her p.o. intake. Patient understands that she will be n.p.o. after midnight tonight for a lap cholecystectomy on 07/[address] Luo. Patient had a COVID-19 PCR done preop which is negative. 07/19:Today she underwent an ERCP with GI and they recommended surgery to be consulted for inpatient versus outpatient lap cholecystectomy. Patient is stable for discharge from GI standpoint in the a.m. if no surgical intervention is elected by surgery. Consult has been placed to surgery. Hospitalist Physical - Constitutional Vitals: Temp Pulse Resp BP Pulse Ox 99.2 F 68 22 125/70 100 07/20/20 11:40 07/20/20 11:40 07/20/20 11:40 07/20/20 11:40 07/20/20 11:40 General appearance: Present: no acute distress - EENT Eyes: Present: PERRL, EOM intact ENT: hearing intact, clear oral mucosa, dentition normal - Neck Neck: Present: normal ROM - Respiratory Respiratory effort: normal Respiratory: bilateral: CTA - Cardiovascular Rhythm: regular Heart Sounds: Present: S1 & S2. Absent: systolic murmur, diastolic murmur - Extremities Extremities: no ischemia, pulses intact, pulses symmetrical, No edema, normal temperature, normal color, Full ROM Peripheral Pulses: within normal limits - Abdominal General gastrointestinal: soft, non-tender, non-distended, normal bowel sounds - Integumentary Integumentary: Present: clear, warm, dry - Psychiatric Psychiatric: appropriate mood/affect, cooperative - Neurologic Neurologic: CNII-XII intact, no focal deficits, moves all extremities Results - Labs CBC & Chem 7: 07/19/20 04:29 07/19/20 04:29 Labs: Laboratory Last Values WBC 5.8 K/mm3 (4.5-11.0) 07/19/20 04:29 RBC 4.47 M/mm3 (3.65-5.03) 07/19/20 04:29 Hgb 12.0 gm/dl (10.1-14.3) 07/19/20 04:29 Hct 36.8 % (30.3-42.9) 07/19/20 04:29 MCV 82 fl (79-97) 07/19/20 04:29 MCH 27 pg (28-32) L 07/19/20 04:29 MCHC 33 % (30-34) 07/19/20 04:29 RDW 12.9 % (13.2-15.2) L 07/19/20 04:29 Plt Count 238 K/mm3 (140-440) 07/19/20 04:29 Lymph % (Auto) 31.0 % (13.4-35.0) 07/19/20 04:29 Todd % (Auto) 9.0 % (0.0-7.3) H 07/19/20 04:29 Eos % (Auto) 0.7 % (0.0-4.3) 07/19/20 04:29 Baso % (Auto) 0.2 % (0.0-1.8) 07/19/20 04:29 Lymph # (Auto) 1.8 K/mm3 (1.2-5.4) 07/19/20 04:29 Todd # (Auto) 0.5 K/mm3 (0.0-0.8) 07/19/20 04:29 Eos # (Auto) 0.0 K/mm3 (0.0-0.4) 07/19/20 04:29 Baso # (Auto) 0.0 K/mm3 (0.0-0.1) 07/19/20 04:29 Seg Neutrophils % 59.1 % (40.0-70.0) 07/19/20 04:29 Seg Neutrophils # 3.4 K/mm3 (1.8-7.7) 07/19/20 04:29 Sodium 140 mmol/L (137-145) 07/19/20 04:29 Potassium 3.8 mmol/L (3.6-5.0) 07/19/20 04:29 Chloride 104.3 mmol/L (98-107) 07/19/20 04:29 Carbon Dioxide 28 mmol/L (22-30) 07/19/20 04:29 Anion Gap 12 mmol/L 07/19/20 04:29 BUN 9 mg/dL (7-17) 07/19/20 04:29 Creatinine 0.9 mg/dL (0.6-1.2) 07/19/20 04:29 Estimated GFR > 60 ml/min 07/19/20 04:29 BUN/Creatinine Ratio 10 % 07/19/20 04:29 Glucose 75 mg/dL (65-100) 07/19/20 04:29 Calcium 8.7 mg/dL (8.4-10.2) 07/19/20 04:29 Total Bilirubin 0.40 mg/dL (0.1-1.2) 07/19/20 04:29 AST 34 units/L (5-40) 07/19/20 04:29 ALT 77 units/L (7-56) H 07/19/20 04:29 Alkaline Phosphatase 61 units/L (35-129) 07/19/20 04:29 Total Protein 7.3 g/dL (6.3-8.2) 07/19/20 04:29 Albumin 3.9 g/dL (3.9-5) 07/19/20 04:29 Albumin/Globulin Ratio 1.1 % 07/19/20 04:29 Amylase 111 units/L (27-131) 07/19/20 04:29 Lipase 97 units/L (13-60) H 07/19/20 04:29 Urine Color Sana (Yellow) 07/18/20 Unknown Urine Turbidity Slightly-cloudy (Clear) 07/18/20 Unknown Urine pH 5.0 (5.0-7.0) 07/18/20 Unknown Ur Specific Swisher 1.028 (1.003-1.030) 07/18/20 Unknown Urine Protein 100 mg/dl mg/dL (Negative) 07/18/20 Unknown Urine Glucose (UA) Neg mg/dL (Negative) 07/18/20 Unknown Urine Ketones Neg mg/dL (Negative) 07/18/20 Unknown Urine Blood Neg (Negative) 07/18/20 Unknown Urine Nitrite Neg (Negative) 07/18/20 Unknown Urine Bilirubin Neg (Negative) 07/18/20 Unknown Urine Urobilinogen 2.0 mg/dL (<2.0) 07/18/20 Unknown Ur Leukocyte Esterase Lg (Negative) 07/18/20 Unknown Urine WBC (Auto) 41.0 /HPF (0.0-6.0) H 07/18/20 Unknown Urine RBC (Auto) 5.0 /HPF (0.0-6.0) 07/18/20 Unknown U Epithel Cells (Auto) 15.0 /HPF (0-13.0) H 07/18/20 Unknown Urine Bacteria (Auto) 1+ /HPF (Negative) 07/18/20 Unknown Urine Mucus 3+ /HPF 07/18/20 Unknown Urine HCG, Qual Negative (Negative) 07/20/20 Unknown Coronavirus (PCR) Negative (Negative) 07/20/20 10:01 Smith/IV: Voiding Method Toilet IV Catheter Type [Left Peripheral IV Antecubital] Active Medications - Current Medications Current Medications: Generic Name Dose Route Start Last Admin Trade Name Freq PRN Reason Stop Dose Admin Acetaminophen 650 mg 07/18/20 11:30 07/19/20 16:03 Tylenol PO 650 mg Q4H PRN Administration Pain MILD(1-3)/Fever >100.5/DUBON Sodium Chloride 1,000 mls @ 75 mls/hr 07/19/20 09:15 07/20/20 05:42 Nacl 0.9% 1000 Ml IV 75 mls/hr DIRECT DONELL Administration Ceftriaxone Sodium 2 gm in 100 mls @ 200 mls/hr 07/19/20 10:00 07/20/20 09:07 Rocephin/Ns 2 Gm/100 Ml IV 200 mls/hr Q24HR DONELL Administration Morphine Sulfate 2 mg 07/18/20 11:30 Morphine IV Q4H PRN Pain, Moderate (4-6) Ondansetron HCl 4 mg 07/18/20 11:30 Zofran IV Q8H PRN Nausea And Vomiting Pantoprazole Sodium 40 mg 07/19/20 10:00 07/20/20 09:07 Protonix IV 40 mg QDAY DONELL Administration Sodium Chloride 10 ml 07/18/20 22:00 07/20/20 09:08 Sodium Chloride Flush Syringe 10 Ml IV 10 ml BID DONELL Administration Sodium Chloride 10 ml 07/18/20 11:30 Sodium Chloride Flush Syringe 10 Ml IV PRN PRN LINE FLUSH Nutrition/Malnutrition Assess - Dietary Evaluation Nutrition/Malnutrition Findings: Nutrition Notes Start: 07/19/20 11:14 Freq: Status: Active Protocol: Document 07/19/20 11:14 AT (Rec: 07/19/20 11:23 AT [email or web address]) Co-Sign 07/19/20 11:14 LP Nutrition Notes Need for Assessment generated from: marble cleaner Initial or Follow up Brief Note Other Pertinent Diagnosis Choledocholithias, Acute pancreatitis, UTI Current Diet NPO Subjective/Other Information Consult for skin risk, but found no wounds. Chart puts Shad Score at 20. Pt currently out of the room was not able to contact by phone. RN reports that the pt is not currently experiencing N/V. Nutrition Intervention Revisit per MD consult or patient Sign Off request:
--- NOTE | 2020-07-20 15:35 | Gastroenterology Progress Note ---
Assessment and Plan 1. GI: s/p ercp w/o obvious complication - for lap brittany in am - post-op management and dc per surgery team - will sign off, call of needed Subjective Date of service: 07/20/20 Interval history: - no GI complaints overnight Objective - Constitutional Vitals: Temp Pulse Resp BP Pulse Ox 99.2 F 68 22 125/70 100 07/20/20 11:40 07/20/20 11:40 07/20/20 11:40 07/20/20 11:40 07/20/20 11:40 General appearance: no acute distress - EENT Eyes: PERRL - Respiratory Respiratory: bilateral: CTA - Cardiovascular Rhythm: regular Heart Sounds: Present: S1 & S2 - Gastrointestinal General gastrointestinal: Present: soft, non-tender, non-distended - Labs CBC & Chem 7: 07/19/20 04:29 07/19/20 04:29 Labs: Laboratory Results - last 24 hr 07/20/20 07/20/20 10:01 Unknown Urine HCG, Qual Negative Coronavirus (PCR) Negative
[2020-07-21 06:27] LABS: Hematocrit 36.5 % (30.3-42.9); Hemoglobin 12.2 gm/dl (10.1-14.3); Mean Corpuscular HGB Conc 34 % (30-34); Mean Corpuscular Volume 81 fl (79-97); Platelet Count 227 K/mm3 (140-440); Red Blood Count 4.48 M/mm3 (3.65-5.03); Red Cell Distribution Width 12.7 % (13.2-15.2)
[2020-07-21 06:37] LABS: INR 1.26 (0.87-1.13)
[2020-07-21] MEDS ORDERED: LIDOCAINE (1%) 10 MG/1 ML VIAL 20 ML MDV ONE (07:05)
[2020-07-21] MEDS ORDERED: BUPIVACAINE/PF (0.5%) 5 MG/1 ML 30 ML VIAL INFILTRATI ONE ×3 (07:06→08:09)
[2020-07-21] MEDS ORDERED: SODIUM CHLORIDE 0.9% 100 ML ONE (07:07)
[2020-07-21 07:09] LABS: Alanine Aminotransferase 41 units/L (7-56); Albumin 3.7 g/dL (3.9-5); Blood Urea Nitrogen 7 mg/dL (7-17); Calcium 8.7 mg/dL (8.4-10.2); Hemolysis Index 14
[2020-07-21] MEDS ORDERED: ONDANSETRON 4 MG/2 ML INJ ONE (07:20)
[2020-07-21] MEDS ORDERED: ROCURONIUM 50 MG/5 ML INJ IV ONE (07:20)
[2020-07-21] MEDS ORDERED: propofoL 200 MG/20 ML VIAL IV ONE (07:20)
[2020-07-21] MEDS ORDERED: HYDROmorphone 1 MG/1 ML INJ ONE (07:20)
[2020-07-21] MEDS ORDERED: LIDOCAINE MPF (2%) 20 MG/1 ML VIAL 5 ML ONE (07:20)
[2020-07-21] MEDS ORDERED: dexAMETHasone 20 MG/5 ML VIAL ONE (07:20)
[2020-07-21 07:22] LABS: BUN/Creatinine Ratio 10
[2020-07-21] MEDS ORDERED: LACTATED RINGERS 1,000 ML ONE ×2 (07:37→09:25)
--- NOTE | 2020-07-21 07:57 | Anesthesia Day of Surgery ---
Anesthesia Day of Surgery - Day of Surgery Patient Examined: Yes Patient H&P Reviewed: Yes Patient is NPO: Yes
[2020-07-21] MEDS ORDERED: ONDANSETRON 4 MG/2 ML INJ IV PRN (07:59)
[2020-07-21] MEDS ORDERED: HYDROmorphone 1 MG/1 ML INJ IV PRN (07:59)
--- NOTE | 2020-07-21 07:59 | Progress Note ---
Subjective Date of service: 07/21/20 Interval history: Patient POD 2 s/p ERCP under MAC now scheduled for lap brittany under GA. No interval clinical change. No anesthetic complications. ASA 1. Plan GETA, standard ASA monitors. Objective - Constitutional Vitals: Vital Signs - 12hr 07/20/20 07/20/20 07/21/20 22:00 22:26 05:17 Temperature 98.2 F 98.1 F Pulse Rate 69 72 Respiratory 20 18 18 Rate Blood Pressure 107/73 110/69 O2 Sat by Pulse 100 100 100 Oximetry - Labs CBC & Chem 7: 07/21/20 04:00 07/21/20 05:16 Labs: Abnormal lab results 07/21/20 07/21/20 07/21/20 Range/Units 04:00 04:00 05:16 MCH 27 L (28-32) pg RDW 12.7 L (13.2-15.2) % PT 15.8 H (12.2-14.9) Sec. INR 1.26 H (0.87-1.13) Potassium 3.4 L (3.6-5.0) mmol/L Albumin 3.7 L (3.9-5) g/dL
[2020-07-21] MEDS ORDERED: LIDOCAINE (1%) 10 MG/1 ML VIAL 20 ML MDV INFILTRATI ONE ×2 (08:09)
[2020-07-21] MEDS ORDERED: ePHEDrine SULFATE 50 MG/1 ML INJ ONE (08:11)
[2020-07-21] MEDS ORDERED: SODIUM CHLORIDE 0.9% IRRIG SOLN 2000 ML IR ONE (08:27)
[2020-07-21] MEDS ORDERED: SODIUM CHLORIDE 0.9% IRR 1,500 ML BOTTLE IR ONE ×2 (09:03)
[2020-07-21] MEDS ORDERED: PHENYLEPHRINE/NS 1,000 MCG/10 ML SYRINGE (OR USE) IV ONE (09:19)
[2020-07-21] MEDS ORDERED: GLYCOPYRROLATE 0.4 MG/2 ML INJ ONE ×2 (09:20)
[2020-07-21] MEDS ORDERED: NEOSTIGMINE 10MG/10 ML INJ MDV ONE (09:20)
--- NOTE | 2020-07-21 09:45 | Operative Report ---
Operative Report Operative Report: Dates of Service: 07/21/2020 Primary Surgeon: Derick Luo MD Assisted by: Jackson Ladd CSA Anesthesia: General Pre-Operative Diagnosis: cholelithiasis/cholecystitis Post-Operative Diagnosis: Same Indications for Procedure: 34 year old female who presented to ED with abdominal pain. Found to have choledocholithiasis, and possible cholecystitis. She had an ERCP to clear her ducts, and is having cholecsytectomy today. Description of Procedure(s): The patient was brought to the operating room and underwent general anesthesia after lower extremity SCD were placed. The abdomen was prepped and draped in the standard fashion. IV antibiotics were given and a time out was performed. Using a veress needle via a stab incision in the umbilicus, the abdomen was insuflated to a pressure of 15mmHg. Using optivew technique, a 5mm trocar was placed just superior and to the left of the umbilicus. There was no gross injury noted to any intra-abdominal structures. After which working trocars were placed under direct visualization. A 12 mm trocar was placed in the epigastrium, and two more 5 mm trocars were inserted in the right lateral sites. The gallbladder was located and grasped at the fundus and retracted up toward the patient's right shoulder. The infundibulum was grasped and retracted laterally. A window was made between the cystic artery and the cystic duct, clearly delineating the two structures. A critical view was achieved. These were clipped with a 5 mm clip personnel assistant and divided. The peritoneum was incised with hook cautery, and the gallbladder was taken from the liver bed, ensuring hemostatis. Jim powder was placed on the liver bed f or mild oozing. The endocatch bag was placed in the abdomen and the gallbladder was then removed from the abdomen. The liver bed was examined and the trocars removed under direct visualization. The insufflation was then terminated. The epigastric incision was closed with a O-vicryl suture. The skin incisions were closed using 4-0 Monocryl sutures. All the wounds dressed with dermabond. The patient tolerated the procedure well, was extubated and taken to the recovery room in satisfactory condition. Finding(s): slightly inflamed gallbladder with stones Intra-Operative Complications: none Specimens Removed: Gallbladder Estimated Blood Loss: <15ml Complications: none immediate
[2020-07-21] MEDS ORDERED: KETOROLAC 30 MG/1 ML INJ IV SCH (10:00)
[2020-07-21] MEDS ORDERED: KETOROLAC 30 MG/1 ML INJ ONE (10:11)
[2020-07-21] MEDS ORDERED: oxyCODONE /ACETAMINOPHEN 5-325MG TAB PO PRN (11:00)
[2020-07-21] MEDS: cefTRIAXone/NS 2 GM/100 ML 2 GM/100 ML BAG IV SCH (11:16)
--- NOTE | 2020-07-21 13:00 | Progress Note ---
Assessment and Plan POD# 0 s/p lap brittany for cholecystitis, cholelithiasis, stable and afebrile. Pt can be discharged from surgical perspective. She is to call my office for an appointment to see me for post op check in two weeks. [phone] She can shower, and advance diet as tolerated Subjective Date of service: 07/21/20 Narrative: pt underwent an uneventful lap cholecystectomy. She says her pain is controlled and she feels fine tolerating liquids. Objective Vital Signs - 12hr 07/21/20 07/21/20 07/21/20 05:17 09:45 09:50 Temperature 98.1 F 98.1 F Pulse Rate 72 76 74 Respiratory 18 20 18 Rate Blood Pressure 110/69 106/57 106/57 O2 Sat by Pulse 100 100 100 Oximetry 07/21/20 07/21/20 07/21/20 09:55 10:00 10:14 Temperature Pulse Rate 68 67 Respiratory 16 21 18 Rate Blood Pressure 102/61 101/59 O2 Sat by Pulse 100 100 Oximetry 07/21/20 07/21/20 07/21/20 10:15 10:30 10:37 Temperature Pulse Rate 62 65 Respiratory 15 21 17 Rate Blood Pressure 109/64 114/67 O2 Sat by Pulse 100 99 Oximetry - General physical appearance well developed, no distress, no pain - Respiratory normal expansion, normal respiratory effort - Abdomen soft, other (incisions c/d/i, appropriately tender to palpation. ) - Labs 07/21/20 04:00 07/21/20 05:16 Diabetes panel 07/21/20 Range/Units 05:16 Sodium 139 (137-145) mmol/L Potassium 3.4 L (3.6-5.0) mmol/L Chloride 104.2 (98-107) mmol/L Carbon Dioxide 25 (22-30) mmol/L BUN 7 (7-17) mg/dL Creatinine 0.7 (0.6-1.2) mg/dL Glucose 80 (65-100) mg/dL Calcium 8.7 (8.4-10.2) mg/dL AST 18 (5-40) units/L ALT 41 (7-56) units/L Alkaline Phosphatase 52 (35-129) units/L Total Protein 7.2 (6.3-8.2) g/dL Albumin 3.7 L (3.9-5) g/dL Calcium panel 07/21/20 Range/Units 05:16 Calcium 8.7 (8.4-10.2) mg/dL Albumin 3.7 L (3.9-5) g/dL Pituitary panel 07/21/20 Range/Units 05:16 Sodium 139 (137-145) mmol/L Potassium 3.4 L (3.6-5.0) mmol/L Chloride 104.2 (98-107) mmol/L Carbon Dioxide 25 (22-30) mmol/L BUN 7 (7-17) mg/dL Creatinine 0.7 (0.6-1.2) mg/dL Glucose 80 (65-100) mg/dL Calcium 8.7 (8.4-10.2) mg/dL Adrenal panel 07/21/20 Range/Units 05:16 Sodium 139 (137-145) mmol/L Potassium 3.4 L (3.6-5.0) mmol/L Chloride 104.2 (98-107) mmol/L Carbon Dioxide 25 (22-30) mmol/L BUN 7 (7-17) mg/dL Creatinine 0.7 (0.6-1.2) mg/dL Glucose 80 (65-100) mg/dL Calcium 8.7 (8.4-10.2) mg/dL Total Bilirubin 0.30 (0.1-1.2) mg/dL AST 18 (5-40) units/L ALT 41 (7-56) units/L Alkaline Phosphatase 52 (35-129) units/L Total Protein 7.2 (6.3-8.2) g/dL Albumin 3.7 L (3.9-5) g/dL
--- NOTE | 2020-07-21 13:11 | Discharge Summary ---
Providers - Providers Date of Admission: 07/20/20 09:06 Attending physician: RENETTA HOPPER 07/18/20 13:52 Consult to Physician [CONS] Urgent Comment: Consulting Provider: ANDREY MCCANN Physician Instructions: Reason For Exam: Acute pancreatitis/cholelithiasis/dilated CBD 07/19/20 13:50 Consult to Physician [CONS] Routine Comment: Consulting Provider: STARR LUO Physician Instructions: Reason For Exam: lap brittany Primary care physician: GLORY HOLE TENDER Hospitalization Condition: Stable Hospital course: This is a 34-year-old female with preeclampsia during who presents to the emergency department on 07/18 with complaints of bilateral lower abdomen and right upper quadrant pain associated with nausea and vomiting for 3 days rated at 7-8/10 and is described as sharp and intermittent without radiation whioch worsens with eating and slightly alleviated with vomiting. She states the pain has been ongoing intermittently for 6 months however has worsened over the past 3 days. Work-up in the ED included an abdominal ultrasound which revealed cholelithiasis with slight dilation of the common bile duct, slight thickening of the gallbladder wall, lab work which revealed transaminitis (AST 79, ALT 117) and elevated lipase at 1236. Her urine analysis is positive for leukocyte esterase with pyuria. GI was consulted in the emergency department who ordered an MRCP which showed cholelithiasis with mild gallbladder wall thickening and Choledocholithiasis with a couple tiny stones measuring up to 3 mm in the extrahepatic biliary. She underwent an ERCP/ showed cholangiogram with small deficits, normal limits pancreatogram and she had a small stone and sludge removed with ballon with sphincterotomy. On 07/21 she underwent a laparoscopic cholecystectomy with Dr. Luo. Patient will be discharge with antibiotic therapy for her urinary tract infection, able to advance her diet as tolerated and will need to follow-up with her PCP and Dr. Luo within 1 to 2 weeks of discharge. 07/19:Today she underwent an ERCP with GI and they recommended surgery to be consulted for inpatient versus outpatient lap cholecystectomy. Patient is stable for discharge from GI standpoint in the a.m. if no surgical intervention is elected by surgery. Consult has been placed to surgery. - Patient Problems (1) Cholecystitis with cholelithiasis Current Visit: Yes Status: Acute Plan to address problem: 07/18 abdominal ultrasound shows cholelithiasis, slightly dilated common bile duct, slightly thickened gallbladder wall. 07/18 MRCP shows cholelithiasis with mild gallbladder wall thickening and Choledocholithiasis with a couple tiny stones measuring up to 3 mm in the extrahepatic biliary ductal system. 07/19 ERCP shows cholangiogram with small deficits, normal limits pancreatogram, small stone and sludge removed with ballon, sphincterotomy GI consulted in the emergency department, appreciate recommendations Per GI consider surgery consult for lap brittany inpatient versus outpatient, okay to DC from GI standpoint if stable in the morning Surgery consulted, appreciate recommendations s/p 07/[address] Luo, follow-up in the office within 1 to 2 weeks of discharge (2) Acute pancreatitis Current Visit: Yes Status: Resolved Qualifiers: Pancreatitis type: biliary Acute pancreatitis complication: unspecified Qualified Code(s): K85.10 - Biliary acute pancreatitis without necrosis or infection Plan to address problem: S/p MIVF 07/18 lipase 1286, transaminitis (AST 79, ALT 117) 07/19 LFT: AST 38, ALT 77, alkaline phos 61 07/19 lipase 97 (3) Urinary tract infection Current Visit: Yes Status: Acute Plan to address problem: 07/18 urine analysis is positive for leukocyte esterase with pyuria. 07/18 urine culture pending Patient will be discharged with antibiotic therapy to complete her 3 day course Disposition: DC- TO HOME OR SELFCARE Time spent for discharge: 35 Core Measure Documentation - Palliative Care Palliative Care/ Comfort Measures: Not Applicable - Core Measures Any of the following diagnoses?: none Exam - Constitutional Vitals: Temp Pulse Resp BP Pulse Ox 98.1 F 65 17 114/67 99 07/21/20 09:45 07/21/20 10:30 07/21/20 10:37 07/21/20 10:30 07/21/20 10:30 General appearance: Present: no acute distress - EENT Eyes: Present: PERRL, EOM intact ENT: hearing intact, clear oral mucosa, dentition normal - Neck Neck: Present: supple, normal ROM - Respiratory Respiratory effort: normal Respiratory: bilateral: CTA - Cardiovascular Rhythm: regular Heart Sounds: Present: S1 & S2. Absent: systolic murmur, diastolic murmur - Extremities Extremities: no ischemia, pulses intact, pulses symmetrical, No edema, normal temperature, normal color, Full ROM Peripheral Pulses: within normal limits - Abdominal General gastrointestinal: Present: soft, non-tender, non-distended, hypoactive bowel sounds - Integumentary Integumentary: Present: warm, dry - Musculoskeletal Musculoskeletal: strength equal bilaterally - Psychiatric Psychiatric: appropriate mood/affect, cooperative - Neurologic Neurologic: CNII-XII intact, no focal deficits, moves all extremities - Allied Health Allied health notes reviewed: nursing Plan Activity: advance as tolerated Diet: low fat Additional Instructions: Present to nearest emergency department or contact your primary care physician if you experience worsening symptoms. You will need to follow-up with Dr. Luo in 2 weeks for postop check. Follow wound care instructions per your surgeon. Advance diet as tolerated. Follow-up with your primary care physician within 1 to 2 weeks of discharge. Follow up with: PRIMARY CARE, [Primary Care Provider] - 7 Days STARR LUO MD [Staff Physician] - 7 Days Forms: Work/School Release Form Prescriptions: Sulfamethoxazole/Trimethoprim [Bactrim DS TAB] 1 each PO BID 1 Days #2 tablet oxyCODONE /ACETAMINOPHEN [Percocet 5/325] 2 tab PO Q6HR PRN #20 tablet PRN Reason: Pain
[2020-07-21] MEDS: PANTOPRAZOLE 40 MG INJ IV SCH (13:27)
[2020-07-21 13:34] VITALS: BP 117/69
== END 2020-07-21 17:25 | disposition home or self-care (01) | DRG 414 ==
LOC: ED 07:30 → 3A 11:01 → OBSVTOIN 07-20 09:06
PROVIDERS: ADMIT Internal Medicine; ATTEND Hospitalist
PROC: 0FC98ZZ Extirpation of Matter from Common Bile Duct, Via Natural or Artificial Opening Endoscopic (ICD-10-PCS; 2020-07-19)
PROC: BF101ZZ Fluoroscopy of Bile Ducts using Low Osmolar Contrast (ICD-10-PCS; 2020-07-19)
PROC: 0FT40ZZ Resection of Gallbladder, Open Approach (ICD-10-PCS; principal; 2020-07-21)
DX: K80.50 Calculus of bile duct without cholangitis or cholecystitis without obstruction (principal); K85.10 Biliary acute pancreatitis without necrosis or infection; N39.0 Urinary tract infection, site not specified; Z20.828 Contact with and (suspected) exposure to other viral communicable diseases; Z79.899 Other long term (current) drug therapy
CPT/HCPCS: 36415; 74181; 74330; 76705; 80053; 81001; 81025; 82150; 83690; 85025; 85027; 85610; 87086; 88304; 90471; 96361; 96365; 96375; 96376; G0378; A4217; C1726; C9113; J0696; J1100; J1170; J1885; J1956; J2250; J2370; J2405; J2704; J2710; J3010; J3490; J7030; J7120; Q9967; U0003

== ENCOUNTER 2020-08-10 09:30 | Emergency (ER) | payer SELFPAY ==
[2020-08-10 10:15] VITALS: BP 125/84
== END 2020-08-10 13:00 | disposition left against medical advice (07) ==
LOC: ED 09:30
DX: Z53.21 Procedure and treatment not carried out due to patient leaving prior to being seen by health care provider (principal)